=== PATIENT | female | born 1975 | race Caucasian/White ===

== ENCOUNTER 2020-09-21 01:16 | Outpatient (CLI) | payer OTHER, SELFPAY ==
[2020-09-21 20:08] LABS: SARS-CoV-2 RNA PCR Negative
== END 2020-09-21 01:17 | disposition home or self-care (01) ==
LOC: ANHCOVIDDT 01:16
PROVIDERS: PCP Internal Medicine; Visit Provider Obstetrics & Gynecology
DX: Z01.812 Encounter for preprocedural laboratory examination (principal); Z20.822 Contact with and (suspected) exposure to COVID-19
CPT/HCPCS: C9803; U0003

== ENCOUNTER 2020-09-21 08:00 | Outpatient (CLI) | payer OTHER, SELFPAY ==
--- NOTE | 2020-09-21 08:08 | ECG_ITS ---
Measurements Intervals [place] Rate: 60 P: 19 LA: 161 QRS: 57 QRSD: 102 T: 55 QT: 404 QTc: 405 Interpretive Statements SINUS RHYTHM LOW QRS VOLTAGE IN PRECORDIAL LEADS BORDERLINE T WAVE ABNORMALITY- ANTERIOR LEADS BORDERLINE ECG Electronically Signed On 09-21-2020 8:58:28 EMERY WHEEL [employer]OLDER by [place] Thomas D.O.
== END 2020-09-21 08:01 | disposition home or self-care (01) ==
PROVIDERS: PCP Internal Medicine; Visit Provider Anesthesiology
DX: Z01.810 Encounter for preprocedural cardiovascular examination (principal); I10 Essential (primary) hypertension
CPT/HCPCS: 93005; C9803; U0003

== ENCOUNTER 2020-09-25 00:26 | Day surgery (SDC) | payer OTHER, SELFPAY ==
[2020-09-17 14:37] VITALS: BMI 32.1
--- NOTE | 2020-09-24 10:19 | WPDANESEPPF ---
Anes - Initial Pre Proc Eval Procedure: Operation Date: 09/25/20 07:30 Proposed Procedures p Laparoscopic Bilateral Salpingectomy - Navi Wick MD Date/Time: 09/24/20 10:19 Surgeon: Navi Wick MD Pre Op Diagnosis: desires sterilzation Patient Data Age: 45 Gender: F Height: 1.63 m Weight: 85 kg Allergies Allergy/AdvReac Type Severity Reaction Status Date / Time adalimumab Allergy Unknown Rash Verified 09/25/20 06:19 lisinopril Allergy Unknown Rash, COUGH Verified 09/25/20 06:19 losartan Allergy Unknown Rash Verified 09/25/20 06:19 Sulfa (Sulfonamide Allergy Unknown Rash Verified 09/25/20 06:19 Antibiotics) codeine AdvReac Unknown NAUSEA/VOMI Verified 09/25/20 06:19 TING Home Medications Medication Instructions Recorded Confirmed Type multivitamin 1 tablet PO DAILY 11/28/19 09/25/20 History biotin-folic acid-B compC-zinc 3 tablet PO DAILY 09/17/20 09/25/20 History calcium carbonate-vitamin D3 1 tablet PO BID 09/17/20 09/25/20 History [Calcium + D] docusate sodium [Colace] 150 mg PO DAILY 09/17/20 09/25/20 History doxycycline hyclate See Rx Instructions .ROUTE .COMPLEX 09/17/20 09/25/20 History metoprolol tartrate 25 mg PO QAM 09/17/20 09/25/20 History ursodiol 300 mg PO BID 09/17/20 09/25/20 History wheat dextrin [Benefiber Healthy 5 g PO DAILY 09/17/20 09/25/20 History Shape] Patient hx anesthesia problems: none Family hx anesthesia problems: none PMFSH Past Medical History Medical History (Updated 09/24/20 @ 10:20 by Pete Cortez DO) Anemia Fibromyalgia GERD (gastroesophageal reflux disease) Hepatitis A Hypertension Mitral valve prolapse JUAN ANTONIO (obstructive sleep apnea) CPAP Rheumatoid arthritis Spondylosis Vaginal delivery x 2 Surgical History Surgical History (Updated 09/24/20 @ 10:20 by Pete Cortez DO) History of endometrial ablation History of sinus surgery History of sleeve gastrectomy History of weight loss surgery Family History Family History Mother Hypertension Cerebrovascular accident Family history of diabetes mellitus in first degree relative Family history of malignant neoplasm of cervix Family history of malignant neoplasm of ovary Grandparent Family history of coronary artery disease, Onset Age: 63 Social History Social History Smoking status: Never smoker Second hand tobacco smoke exposure: No Smoking end date: 09/20/08 Alcohol intake: never Substance use: never Living arrangements: with family Additional living arrangements comments: WITH CHILDREN Spiritual care concerns: No Anes - Eval Final PreProcedure Day of Procedure 09/24/20 10:19 Patient weight: obese Heart: regular rate and rhythm Lungs: clear to auscultation and normal air movement Airway: Mallampati scale class II Neurological: alert and oriented Last oral intake: >/= 8 hours ASA classification: III Emergent: no Anesthetic plan: proceed Anesthesia type and monitoring: general ETT and standard monitoring Informed Consent: The patient's anesthetic plan and its attendant risks and benefits were discussed with the patient/family/POA. Questions were solicited and answers provided to the satisfaction of the patient/family/POA.
[2020-09-25 06:06] VITALS: BP 147/97; PULSE 57; RESP 16; TEMP 36.5; O2SAT 100
[2020-09-25] MEDS: ACETAMINOPHEN 500 MG TABLET 1000 MG PO (06:24)
[2020-09-25] MEDS: KETOROLAC 15 MG/ML VIAL (*BKC) IV PUSH (06:40)
[2020-09-25] MEDS: LACTATED RINGERS 1,000 ML 30 ML IV CONT ×2 (06:40→09:39)
--- NOTE | 2020-09-25 07:37 | SUR.PREOP ---
0725 pt informed delay in procedure md called will be late.
--- NOTE | 2020-09-25 07:45 | PM.IMHP ---
H&P: HPI History of Present Illness Date/Time: 09/25/20 07:45 Chief Complaint: Desires sterilization Narrative: Radha Galvez is a 45 year old female Para 2 with satisfied parity. She desires permanent sterilization. She has been counseled regarding risk and benefits of sterilization procedure. She declines all other non permanent forms of contraception. Review of Systems Review of Systems: All systems reviewed & are unremarkable except as noted in HPI and below Cardiovascular: Cardiovascular: Reports no additional cardiovascular complaints, Denies chest pain and Denies dyspnea Respiratory: Respiratory: Reports no additional respiratory complaints and Denies dyspnea Gastrointestinal: Gastrointestinal: Reports abdominal pain, Denies change in bowel habits, Denies diarrhea, Denies nausea and Denies vomiting Genitourinary: Genitourinary: Reports pelvic pain Musculoskeletal: Musculoskeletal: Reports back pain Integumentary/Breasts: Skin/Breast: Reports system reviewed and no additional complaints, except as docu Neurologic: Reports system reviewed and no additional complaints, except as documented PMFSH Past Medical History Medical History Anemia Fibromyalgia GERD (gastroesophageal reflux disease) Hepatitis A Hypertension Mitral valve prolapse JUAN ANTONIO (obstructive sleep apnea) CPAP Rheumatoid arthritis Spondylosis Vaginal delivery x 2 Surgical History Surgical History History of endometrial ablation History of sinus surgery History of sleeve gastrectomy History of weight loss surgery Family History Family History Mother Hypertension Cerebrovascular accident Family history of diabetes mellitus in first degree relative Family history of malignant neoplasm of cervix Family history of malignant neoplasm of ovary Grandparent Family history of coronary artery disease, Onset Age: 63 Social History Social History Smoking status: Never smoker Second hand tobacco smoke exposure: No Smoking end date: 09/20/08 Alcohol intake: never Substance use: never Living arrangements: with family Additional living arrangements comments: WITH CHILDREN Spiritual care concerns: No Meds Home Medications and Allergies Home Medications Medication Instructions Recorded Confirmed Type multivitamin 1 tablet PO DAILY 11/28/19 09/25/20 History biotin-folic acid-B compC-zinc 3 tablet PO DAILY 09/17/20 09/25/20 History calcium carbonate-vitamin D3 1 tablet PO BID 09/17/20 09/25/20 History [Calcium + D] docusate sodium [Colace] 150 mg PO DAILY 09/17/20 09/25/20 History doxycycline hyclate See Rx Instructions .ROUTE .COMPLEX 09/17/20 09/25/20 History metoprolol tartrate 25 mg PO QAM 09/17/20 09/25/20 History ursodiol 300 mg PO BID 09/17/20 09/25/20 History wheat dextrin [Benefiber Healthy 5 g PO DAILY 09/17/20 09/25/20 History Shape] Allergies Allergy/AdvReac Type Severity Reaction Status Date / Time adalimumab Allergy Unknown Rash Verified 09/25/20 06:19 lisinopril Allergy Unknown Rash, COUGH Verified 09/25/20 06:19 losartan Allergy Unknown Rash Verified 09/25/20 06:19 Sulfa (Sulfonamide Allergy Unknown Rash Verified 09/25/20 06:19 Antibiotics) codeine AdvReac Unknown NAUSEA/VOMI Verified 09/25/20 06:19 TING Vital Signs Vital Signs - 24 hr 09/25/20 06:06 Temperature 97.7 F Pulse Rate 57 L Respiratory Rate 16 Blood Pressure 147/97 H Pulse Oximetry 100 Exam Const: Orientation/consciousness: oriented to person and oriented to place HENMT: Head: normal to inspection Eyes: General: appearance normal, both eyes and all related structures Resp: Effort & Inspection: normal respiratory effort Auscultation: clear to auscultation bilatera
--- NOTE | 2020-09-25 07:48 | WPDHPUPDATE1 ---
History and Physical Update Update Date/Time: 09/25/20 07:48 History and Physical has been reviewed, including an updated exam of the patient. There are NO changes in the patient's condition. Risks, benefits, and alternatives have been discussed and questions answered. Patient agrees to proceed with procedure.
[2020-09-25] MEDS: BUPIVACAINE HCL 0.5% PF 30 ML VIAL INFILTRATE (08:24)
--- NOTE | 2020-09-25 09:28 | PM.PROC ---
Procedure Note - Detailed Date of procedure: 09/25/20 Pre-op diagnosis: desires sterilzation Post-op diagnosis: other (left ovarian cystectomy) Procedure performed: 1. Laparoscopic bilateral salpingectomy 2. Left ovarian cystectomy Description of procedure: After informed consent was obtained patient was taken to the operating room and general endotracheal anesthesia was administered. She was placed in low lithotomy need prep prepped sterile fashion. Attention was turned to the vagina speculum inserted single-tooth tenaculum placed on anterior lip of the cervix. [place] uterine manipulator placed into the cervical canal. The speculum was removed. Attention was then turned to the abdomen. With sterile gloves a vertical incision was made at the umbilicus and a Veress needle was inserted into the abdomen confirmation into the abdomen obtained with free flow of fluid and normal peritoneal pressures. A pneumoperitoneum of 15 mm per mercury was obtained. The 5 mm port was inserted under laparoscopic visualization. Patient was placed in Trendelenburg position. Attention was turned to the left side of the abdomen and a 5 mm port was inserted under laparoscopic visualization. The pelvic organs were visualized. Attention was turned to the right side of the abdomen and another 5 mm port was inserted under laparoscopic visualization on the right side. Using the LigaSure the right fallopian tube was excised to near the entrance to the uterus. This was removed through the port. Attention was then turned to the left fallopian tube which the distal left tube was adhesed to an ovarian cyst coming from the ovary. The cyst was entered with the cautery hook from the ligasure. Small amount clear fluid noted and this decompressed the cyst some. The cyst was grasped and was adhesed to the ovary. The fallopian tube was cauterized from round ligament and the cyst wall was enclosed with the distal fallopian tube segment that was cauterized from the broad ligament. The specimen would not fit through the port therefore the left port was removed and the incision extended and a 10 port inserted under laparoscopic visualization. An endocath bag was inserted and specimen placed in bag and the specimen was removed through the endocath bag. A reba robb was used to enclose the fascia of the 10 port and adequate closure of fascia noted. The pelvis was irrigated. Hemostasis was noted at salpingectomy sites. Patient taken out of trendelenburg position. Pneumoperitoneum and ports were removed. Skin incisions closed with 4.0 vicryl and dermabone. Uterine manipulator removed from cervix. Sponge count correct.Patient tolerated procedure well. She was extubated in OR and taken to recovery in stable condition. Anesthesia: GETA Surgeon: Navi Wick MD Estimated blood loss (mL): 5 Urine output (mL): 100 Drains: No Packing: No Pathology: yes (Right and left fallopian tube and left fallopian tube with ovarian cystwall.) Complications: None Condition: stable Disposition: PACU Findings: Normal uterus. Right ovary normal. Left ovary with cyst adhesed to distal fallopian tube removed with the left fallopian tube. Scar tissue of the upper abdomen consistent with prior surgery.
[2020-09-25 09:39] VITALS: BP 144/111; PULSE 65; RESP 14; TEMP 36.3; O2SAT 100
[2020-09-25 09:50] VITALS: BP 150/84; PULSE 45; RESP 12; O2SAT 100
[2020-09-25 10:05] VITALS: BP 131/80; PULSE 55; RESP 14; O2SAT 100
[2020-09-25 10:20] VITALS: BP 132/79; PULSE 63; RESP 16; O2SAT 99
[2020-09-25 10:35] VITALS: BP 140/80; PULSE 66; RESP 14
== END 2020-09-25 11:22 | disposition home or self-care (01) ==
PROVIDERS: PCP Internal Medicine; Visit Provider Obstetrics & Gynecology
PROC: (CPT 49320; principal; 2020-09-25 07:30)
DX: Z30.2 Encounter for sterilization (principal); D27.1 Benign neoplasm of left ovary; I10 Essential (primary) hypertension; M06.9 Rheumatoid arthritis, unspecified; I34.1 Nonrheumatic mitral (valve) prolapse; D64.9 Anemia, unspecified; M79.7 Fibromyalgia; G47.33 Obstructive sleep apnea (adult) (pediatric); E66.9 Obesity, unspecified; Z68.32 Body mass index [BMI] 32.0-32.9, adult
CPT/HCPCS: 58661; 58662; 88305; A9270; J1100; J1885; J2250; J2405; J2704; J2710; J3010; J7030; J7120

== ENCOUNTER 2022-04-11 08:09 | Outpatient (CLI) | payer OTHER, SELFPAY ==
--- NOTE | ~2022-04-11 | MM_ITS ---
EXAMINATION: MM screening dmitriy BI w deni HISTORY: Screening mammogram TECHNIQUE: Craniocaudal and mediolateral oblique 3-D tomosynthesis images were obtained and synthetic 2-D images were generated. Bilateral rotated lateral craniocaudal views. CAD analysis was submitted and interpreted. COMPARISON: 05/10/2018, 05/18/2016 screening mammogram examinations BREAST PARENCHYMAL COMPOSITION: There are scattered areas of fibroglandular density. FINDINGS: There is no evidence of suspicious mass, calcification, or architectural distortion to sugg est malignancy in either breast. There has been no suspicious interval change. IMPRESSION: 1. No mammographic evidence of malignancy. 2. Recommend routine screening mammography in one year. BI-RADS Category 1: Negative Reviewed, dictated and finalized at location A.
== END 2022-04-11 08:10 | disposition home or self-care (01) ==
LOC: ANHIMG 08:11
PROVIDERS: PCP Internal Medicine; Visit Provider Obstetrics & Gynecology
DX: Z12.31 Encounter for screening mammogram for malignant neoplasm of breast (principal)
CPT/HCPCS: 77063; 77067